=== PATIENT | female | born 1990 | race Caucasian/White ===

== ENCOUNTER 2018-02-05 20:24 | Inpatient (IN) ==
--- NOTE | 2018-02-05 21:17 | Emergency Department Note ---
Abdominal Pain HPI - General Chief Complaint: Abdominal Pain Stated Complaint: abd. pain Time Seen by Provider: 02/05/18 21:01 Mode of arrival: ambulatory - History of Present Illness HPI Narrative: This pleasant 27-year-old female comes to the emergency room with her fourth day of throbbing constant abdominal pain that may be worsened with cough , burping, laying on her side, certain positions, deep breathing. There is some radiation to the upper back. Also some that seems to be left posterior mid lower back area radiating through. She has not had a gallbladder surgery or problem in the past. She did have some similar mild pain during her . Ultrasound of her gallbladder demonstrated sludge during that time. She has no history of kidney disease or ulcer disease. She has tolerated the pain with Tylenol and ibuprofen occasionally being used. Patient was seen at urgent care today and had an elevated lipase and amylase and for this reason is sent to the emergency room. REVIEW OF SYSTEMS: Denies the following: Fevers, chills, sweats, chest pain, shortness of breath, nausea, vomiting, diarrhea, constipation, hematochezia, melena, dysuria, frequency, rashes, headaches, weakness, dizziness, anxiety, depression, back pain except as above. - Related Data Previous Rx's Medication Instructions Recorded sumatriptan 50 mg tablet 50 mg PO .COMPLEX #10 tab 12/12/17 Allergies Allergy/AdvReac Type Severity Reaction Status Date / Time Amoxicillin Allergy Mild Diarrhea,vomiting, Verified 02/05/18 17:46 rash Penicillins Allergy Unknown Diarrhrea, Verified 02/05/18 17:46 vomiting, rash Abdominal Pain PMH - Past Medical History Medical history: Denies: cancer, hypertension (Except for -induced), kidney stones, renal disease, seizures, thyroid disease Denies: peptic ulcer disease Surgical history ED: Reports: , tubal ligation Psychiatric history: Denies: anxiety, depression : 5 Para: 4 (C-S at least one.) Family history: Reports: other (Hypertension) - Social History Smoking status: Never smoker Alcohol use: Reports: Rarely (Maybe once a month) Drug use: Reports: none. Denies: marijuana Physical Exam Limitations: no limitations General appearance: alert, in no apparent distress, other (Able to smile and interact pleasantly, positively, appropriately without any consternation.) Head: atraumatic, normocephalic Eye: Present: normal appearance, PERRL, EOMI. Absent: scleral icterus, conjunctival injection Neck: Present: trachea midline. Absent: lymphadenopathy, thyromegaly Respiratory: Present: normal lung sounds bilaterally. Absent: respiratory distress, wheezes, stridor, accessory muscle use, prolonged expiratory phase Cardiovascular: Present: regular rate, normal rhythm. Absent: systolic murmur, diastolic murmur Abdominal: Present: soft, tenderness (Moderate tenderness in the right upper quadrant and epigastric; and left upper quadrant mildly. Lower abdominal palpation causes mild discomforts in the right upper quadrant area.), other (No periumbilical ecchymosis or flank ecchymosis.). Absent: distention, guarding, rebound, rigidity, organomegaly, mass Back: Absent: CVA tenderness (R), CVA tenderness (L), spinous process tenderness Neurological: Present: alert, oriented X3 Skin: Present: warm, dry Course Course Narrative: 9:00 PM By chemistry criteria is a significant pancreatitis of uncertain cause. Will do ultrasound testing initially. May be mild enough that can be managed conservatively. Labs done earlier today included WBC 7.8. Hemoglobin/hematocrit 11.2/33 HDL 34 Triglycerides 165 Amylase 190 (less than 100) Lipase 795 (less than 60) UA unremarkable with a specific gravity 1.009 Upon ER admission specific gravity however was 1.030. Vital Signs Temperature 98.1 F 02/05/18 20:25 Pulse Rate 117 H 02/05/18 20:25 Respiratory Rate 18 02/05/18 20:25 Blood Pressure 132/80 02/05/18 20:25 Pulse Oximetry (%) 99 02/05/18 20:25 Temperature 98.1 F 02/05/18 20:25 Pulse Rate 103 H 02/06/18 00:33 Respiratory Rate 18 02/05/18 20:25 Blood Pressure 123/70 02/06/18 00:31 Pulse Oximetry (%) 97 02/06/18 00:33 Abdominal Pain - MDM Narrative Medical decision making narrative: 11:20 PM Patient has tried oral fluids, clear, with marked increase in her pain. She looks rather uncomfortable. Will give some Zofran and hydromorphone an attempt to arrange inpatient hydration and pain control. - Lab Data Lab results reviewed: Yes I reviewed the patient's lab results. - Radiology Data Radiology results reviewed: Yes I reviewed the patient's radiology results. Disposition Pt seen by INNER TUBE CUTTER/PA only: No Clinical Impression: Fatty liver Pancreatitis Qualifiers: Chronicity: acute Pancreatitis type: unspecified pancreatitis type Acute pancreatitis complication: no infection or necrosis Qualified Code(s): K85.90 - Acute pancreatitis without necrosis or infection, unspecified Abdominal pain Qualifiers: Abdominal location: upper abdomen, unspecified Qualified Code(s): R10.10 - Upper abdominal pain, unspecified Summary: Patient initially appeared to be a mild case of pancreatitis with hopes of being able to tolerate some clear liquids and having pain control and be handled outpatient. Even a small amount of clear liquids caused quite a bit of significant increase in her pain. This necessitates her being inpatient to control pain and fluid status. 11:40 AM, Dr. Davis kindly accepts care of this patient. Disposition: Xfer As Inpt ([facility]) Condition: Fair Referrals: Akbar Garay MD [Primary Care Provider] -
[2018-02-05] MEDS ORDERED: HYDROmorphone 2 MG/ML VIAL IV PRN (23:23)
[2018-02-05] MEDS ORDERED: ONDANSETRON ODT 4 MG TABLET SL ONE (23:23)
[2018-02-06] MEDS ORDERED: 0.9 % SODIUM CHLORIDE 1,000 ML IV SCH (02:10)
[2018-02-06] MEDS ORDERED: HYDROmorphone 2 MG/ML VIAL IV PRN (02:10)
[2018-02-06] MEDS ORDERED: ACETAMINOPHEN 325 MG TABLET PO PRN (02:10)
[2018-02-06] MEDS: 0.9 % SODIUM CHLORIDE 10 ML SYRINGE IV SCH ×4 (02:43→21:12)
[2018-02-06 03:07] LABS: C-Reactive Protein 16.4 mg/dl (0.0-0.8)
[2018-02-06] MEDS: ACETAMINOPHEN 1,000 MG/100 ML BOTTLE IV PRN ×2 (03:29→21:13)
[2018-02-06] MEDS: 0.9 % SODIUM CHLORIDE 1,000 ML IV SCH ×4 (03:32→21:11)
[2018-02-06] MEDS: ONDANSETRON 4 MG/2 ML VIAL IV PRN (07:25)
[2018-02-06 07:27] LABS: Mean Cell Volume 82.7 fL (80.0-100.0); Mean Corpuscular Hemoglobin 28.1 pg (26.0-34.0); Platelet Count 281 K/mcL (140-440); RBC 3.47 M/mcL (4.00-5.20); Red Cell Distribution Width 13.8 % (11.5-14.5)
--- NOTE | 2018-02-06 07:31 | Ultrasound Report ---
CLINICAL INFORMATION: Right upper quadrant pain COMPARISON: None. FINDINGS: Liver is mildly enlarged and diffusely hyperechoic suggesting fatty change or other diffuse hepatocellular process. No focal hepatic lesion. Gallbladder and bile ducts are normal CBD is 3 mm. Pancreas is mildly hypoechoic suggestive, but certainly not diagnostic, of pancreatitis. Right kidney is normal - 12 x 5 cm. No free fluid IMPRESSION: 1. Mild hepatomegaly - please correlate with LFTs and history of exposure to hepatotoxins and viruses 2. Gallbladder and bile ducts are normal 3. Mildly hypoechoic pancreas which is suggestive, but certainly not diagnostic, of pancreatitis. Interpreted and Authenticated by: Jez Frausto 02/06/18
[2018-02-06 07:44] LABS: ALT/SGPT 17 U/l (0-40); Albumin 3.3 gm/dL (3.2-5.2); Albumin/Globulin Ratio 1.1 (1.0-2.3); Alkaline Phosphatase 56 U/L (39-117); Bilirubin,Direct < 0.2 mg/dL (0.0-0.3); Blood Urea Nitrogen 8 mg/dl (6-20); Gamma Glutamyl Transpeptidase 18 U/L (5-36); Uric Acid 3.9 mg/dL (2.5-8.0)
[2018-02-06 07:59] LABS: Lymphocytes % 37 % (15-49); Monocytes % (Manual) 6 % (1-12); Platelet Estimate NORMAL (NORMAL); RBC Morphology NORMAL (NORMAL); Segmented Neutrophils % 57 % (38-78)
--- NOTE | 2018-02-06 08:16 | Internal Med History&Physical ---
Medical - H&P: HPI Patient information: Note initiated : 02/06/18 at 8:14 am Service Date, if different from initiated Date: [] Patient: Shannan Marti 27 y/o F admitted on 02/06/18 for abd. pain. Chief Complaint: [] Chief complaint: abdominal pain nausea History of present illness: Ms. Marti is a 27 year old F [facility] onset of upper abdominal pain associated nausea. Symptoms started roughly around with gradual onset abdominal pain worsening with food intake. Pain is described as initially as an ache and later sharp stabbing 4 out 10-9 out of 10 radiating to the left side and back. Patient thought the symptoms were due to back spasm/GERD and was taking omeprazole along with NSAIDs without relief. After working with the symptoms for additional 4 days she comes to the urgent care. Initial workup was significant for elevated lipase at 700. She was subsequently transferred to ER and hospitalist service was consulted for admission light of acute pancreatitis At the time of evaluation patient is alert oriented and in moderate distress requiring IV opioids. She was able to provide history as above. She denies recent fever chills diarrhea and weight loss. She denies changes in medications. She denies excessive alcoholism except that she takes occasional wine. Denies IV drug use or history of gallstone or similar prior attacks. Review of systems 10 point review of system was performed and is negative except as discussed above Medical - H&P: PMH Medical history: History of migraine Pertinent family history: Grandfather WPW Father hypertension and myocardial infarction No history of pancreatitis Social history: Employed and works at [employer] to [employer] kids History smoking or drug use \Occasional wine use Smoking status: Never smoker Medical - H&P: Meds Home Medications Medication Instructions Recorded Confirmed Type sumatriptan 50 mg tablet 50 mg PO .COMPLEX #10 tab 12/12/17 02/06/18 Rx Allergies Allergy/AdvReac Type Severity Reaction Status Date / Time Amoxicillin Allergy Mild Diarrhea,vomiting, Verified 02/06/18 02:21 rash Penicillins Allergy Mild Diarrhrea, Verified 02/06/18 06:15 vomiting, rash Medical - H&P: Exam - Constitutional Vitals: Temp Pulse Resp BP Pulse Ox 97.9 F 100 H 16 132/79 99 02/06/18 07:34 02/06/18 07:34 02/06/18 07:34 02/06/18 07:34 02/06/18 07:34 General appearance: obese Exam: Alert oriented nonlabored breathing Eye movements ventricle Oral cavity dry No eardischarge Neck no lymphadenopathy nondistended abdomen S1-S2 regular rhythm diminished breath sounds bases Abdomen tender epigastric area without rebound or guarding Skin no suspicious lesion Lower extremity no cyanosis clubbing or lymphedema Psych alert cooperative Neuro nonfocal Medical - H&P: Reslt - Labs CBC & Chem 7: 02/07/18 04:20 02/07/18 04:20 Labs: Short CBC 02/06/18 Range/Units 06:42 WBC 6.1 (4.5-11.0) K/mcL Hgb 9.8 L (12.0-15.0) g/dL Hct 28.7 L (36.0-48.0) % Plt Count 281 (140-440) K/mcL BMP 02/06/18 06:42 Sodium 142 Potassium 4.0 Chloride 106 Carbon Dioxide 27 BUN 8 Creatinine 0.6 Glucose 97 Calcium 8.5 L Liver Function 02/06/18 Range/Units 06:42 Total Bilirubin 0.3 (0.0-1.0) mg/dL Direct Bilirubin < 0.2 (0.0-0.3) mg/dL GGT 18 (5-36) U/L AST 13 (0-37) U/l ALT 17 (0-40) U/l Alkaline Phosphatase 56 (39-117) U/L Albumin 3.3 (3.2-5.2) gm/dL Medical - H&P: A/P (1) Pancreatitis Current visit: Yes Status: Acute * Acute pancreatitis-low Edvin's and Vilas score on admit. CT scan abdomen to rule out pseudocyst/hemorrhage. Continue conservative management with steroids and bowel rest antiemetics and analgesics * Abdominal pain and new management on IV opioids * History of migraine. Continue as needed sumatriptan * Full code * Prophylaxis heparin Plan * Conservative management * Inpatient admission. Anticipate two midnight stay Medical - H&P: Qual - Stroke Symptom Onset Unknown: No - VTE Deep Vein Thrombosis/Pulmonary Embolism Present on Admission: No
[2018-02-06] MEDS ORDERED: IOPAMIDOL 100 ML BOTTLE IV ONE (08:30)
--- NOTE | 2018-02-06 09:02 | Cat Scan Report ---
CLINICAL INFORMATION: Abdominal pain - possible pancreatitis COMPARISON: None. TECHNIQUE: Following enteric contrast, 80 cc of Isovue-300 were injected intravenously, and 60 seconds later, 0.625 mm helical slices were obtained from the mid heart through the subtrochanteric regions. Following reconstruction, 2.5 mm sagittal, coronal and axial reformatted images were processed and reviewed at bone, lung and soft tissue windows. Five minutes later, 0.625 mm helical slices were obtained from the mid heart through the kidneys and viewed at soft tissue windows.The exam was performed using radiation dose optimization techniques including, but not limited to, automated exposure control, adjustment of the mA and/or kV according to patient size and use of iterative reconstruction technique. FINDINGS: Lung bases show subsegmental atelectasis, more prominent in the right lower lobe. There are no effusions. Visualized heart is grossly normal in size and configuration Images through the abdomen show mild hepatic enlargement withmild periportal edema suggesting inflammation or other diffuse hepatocellular process. There is no evidence of elevated right heart pressures - IVC is normal. Both kidneys, adrenal glands, spleen and aorta, including aortic branches, are normal in size, configuration and attenuation without focal lesion. The pancreas shows mild diffuse enlargement, decreased attenuation a small amount of fluid in the peripancreatic fat planes. There are few mildly enlarged mesenteric lymph nodes in the right abdomen which are almost certainly benign reactive lymph nodes. Images through the pelvis show the uterus is anteflexed and mildly enlarged - 10.4 x 4.4 cm. No focal uterine lesions. There are two interval cysts on the right ovary: 3.6 cm and cm respectively. A 2.4 cm simple is noted on the left ovary. Small amount of free fluid is noted in the pouch of Jamison. The colon, appendix, small bowel and stomach are grossly normal. Bone windows show no osseous abnormality IMPRESSION: 1. Mild simple pancreatitis 2. Mild hepatomegaly with periportal edema suggesting a diffuse hepatocellular process such as hepatitis. It also be seen with elevated right heart pressures but there is no CT support for this finding. Please correlate with LFTs and clinical history of exposure to hepatotoxins or viruses 3. Two simple cysts on the right ovary, 3.6 cm and 3.5 cm, respectively. 2.5 cm simple cyst left ovary. 4. Mild uterine enlargement. Most common cause is adenomyosis. Interpreted and Authenticated by: Jez Frausto 02/06/18
[2018-02-06] MEDS: DOCUSATE SODIUM 100 MG CAPSULE PO SCH ×2 (12:34→21:11)
[2018-02-07] MEDS: 0.9 % SODIUM CHLORIDE 1,000 ML IV SCH ×4 (02:08→19:36)
[2018-02-07] MEDS: 0.9 % SODIUM CHLORIDE 10 ML SYRINGE IV SCH ×3 (05:37→20:03)
[2018-02-07 06:23] LABS: Mean Cell Volume 81.8 fL (80.0-100.0); Mean Corpuscular HGB Conc 34.2 g/dL (31.0-36.0); Platelet Count 284 K/mcL (140-440); RBC 3.46 M/mcL (4.00-5.20); Red Cell Distribution Width 12.9 % (11.5-14.5)
[2018-02-07 06:54] LABS: ALT/SGPT 18 U/l (0-40); Albumin 3.2 gm/dL (3.2-5.2); Alkaline Phosphatase 64 U/L (39-117); Bilirubin,Direct < 0.2 mg/dL (0.0-0.3); Blood Urea Nitrogen 7 mg/dl (6-20); Gamma Glutamyl Transpeptidase 24 U/L (5-36); Uric Acid 4.5 mg/dL (2.5-8.0)
[2018-02-07] MEDS: PANTOPRAZOLE 40 MG VIAL IV SCH ×2 (09:30→17:38)
[2018-02-07] MEDS: DOCUSATE SODIUM 100 MG CAPSULE PO SCH ×2 (10:31→20:02)
[2018-02-07 11:08] LABS: Eosinophils % (Manual) 3 % (0-7); Lymphocytes % 35 % (15-49); Monocytes % (Manual) 11 % (1-12); Platelet Estimate NORMAL (NORMAL); RBC Morphology NORMAL (NORMAL); Segmented Neutrophils % 51 % (38-78)
--- NOTE | 2018-02-07 13:25 | Internal Med Progress Note ---
Medical - PN: Subj Patient information: Note initiated : 02/07/18 at 1:23 pm Service Date, if different from initiated Date: [] Patient: Shannan Marti a 27 y/o F admitted on 02/06/18 for Abd Pain/ Pancreatitis. Chief Complaint: [] Interval history: Ms. Marti is a 27 year [facility] F [facility] onset of upper abdominal pain associated nausea. Symptoms started roughly around with gradual onset abdominal pain worsening with food intake. Pain is described as initially as an ache and later sharp stabbing 4 out 10-9 out of 10 radiating to the left side and back. Patient thought the symptoms were due to back spasm/GERD and was taking omeprazole along with NSAIDs without relief. After working with the symptoms for additional 4 days she comes to the urgent care. Initial workup was significant for elevated lipase at 700. She was subsequently transferred to ER and hospitalist service was consulted for admission light of acute pancreatitis /25-patient doing well. Abdominal ultrasound/CT unremarkable except for simple pancreatitis. Triglyceride 100. Multiple ovarian/renal cyst noted. CRP downtrending. Clinically improving. Advancing diet to full liquids. No fever chills or worsening abdominal pain. Family at bedside. Family requesting HIDA scan. Explained there is no evidence of cholecystitis either clinically or on imaging mandating HIDA scan. There is no ductal dilation on imaging either. Continue existing conservative management. Possible discharge in 24-48 hours if able to tolerate a low-fat diet. - Constitutional Vitals: Vital Signs Temp Pulse Resp BP Pulse Ox 97.8 F 96 H 20 129/82 97 02/07/18 11:33 02/07/18 04:00 02/07/18 11:33 02/07/18 11:33 02/07/18 11:33 Period Temp Pulse Resp BP Sys/Neely Pulse Ox Last 24 Hr 97.8 F-98.4 F 96-104 16-20 103-129/70-84 93-97 Intake and Output 02/06/18 02/07/18 02/07/18 21:59 05:59 13:59 Intake Total 1073 / 1073 1090 / 1090 Output Total 550 / 550 400 / 400 Balance 523 / 523 690 / 690 Weight 206 lb 8 oz 206 lb 8 oz Patient Weight 02/08/18 05:59 Weight 206 lb 8 oz Intake & Output: Intake & Output 02/06/18 02/07/18 02/07/18 21:59 05:59 13:59 Intake Total 1073 / 1073 1090 / 1090 Output Total 550 / 550 400 / 400 Balance 523 / 523 690 / 690 Weight 206 lb 8 oz 206 lb 8 oz Intake: IV 983 / 983 1000 / 1000 Sodium Chloride 0.9% 1,000 ml @ 983 / 983 1000 / 1000 125 mls/hr IV .Q8H [facility] Rx#: [id number] Oral 90 / 90 90 / 90 Output: Void Amount 550 / 550 400 / 400 General appearance: no acute distress Exam: Alert oriented nonlabored breathing Nondistended abdomen No anxiety Medical - PN: Obj Da - Labs CBC & Chem 7: 02/07/18 04:20 02/07/18 04:20 Labs: Abnormal Lab Results 02/07/18 02/07/18 02/07/18 04:30 04:20 04:20 RBC 3.46 L Hgb 9.7 L Hct 28.3 L ESR Creatinine 0.5 L Calcium 8.3 L C-Reactive Protein 11.8 H 02/06/18 02/06/18 02/06/18 06:42 06:42 02:15 RBC 3.47 L Hgb 9.8 L Hct 28.7 L ESR Creatinine Calcium 8.5 L C-Reactive Protein 16.4 H 02/06/18 02:15 RBC Hgb Hct ESR 67 H Creatinine Calcium C-Reactive Protein Meds: Medications Acetaminophen (Tylenol) 650 mg PO Q4-6HP PRN PRN Reason: PAIN/FEVER > 101 Docusate Sodium (Colace) 100 mg PO BID [facility] Last Admin: 02/07/18 10:31 Dose: Not Given Hydromorphone HCl (Dilaudid) 0 mg IV Q4HP PRN PRN Reason: PAIN LEVEL > 6 Last Admin: 02/06/18 07:25 Dose: 0.5 mg Sodium Chloride (Sodium Chloride 0.9%) 1,000 mls @ 125 mls/hr IV .Q8H [facility] Last Admin: 02/07/18 05:37 Dose: 125 mls/hr Acetaminophen (Ofirmev) 1,000 mg in 100 mls @ 200 mls/hr IV Q6HP PRN PRN Reason: PAIN/FEVER > 101 Last Admin: 02/06/18 21:13 Dose: 200 mls/hr Ondansetron HCl (Zofran) 4 mg IV Q4-6HP PRN PRN Reason: Nausea And Vomiting Last Admin: 02/06/18 07:25 Dose: 4 mg Pantoprazole Sodium (Protonix) 40 mg IV BIDAC [facility] Last Admin: 02/07/18 09:30 Dose: 40 mg Sodium Chloride (Saline Flush) 10 ml IV Q8 [facility] Last Admin: 02/07/18 05:37 Dose: Not Given Medical - PN: A/P - Time Spent With Patient Total time spent is greater than 50% in coordination of care (as documented) at patient's floor/unit and/or counseling patient: 15 - 24 minutes (1) Pancreatitis Status: Acute Assessment and plan: * Acute pancreatitis-low Edvin's and Liberty score on admit. CT simple pancreatitis without ductal occlusion or stenosis. Continue conservative management . Advanced to full liquid diet * Abdominal pain - clinical improvement noted on IV opioids * History of migraine. Continue as needed sumatriptan * Full code * Prophylaxis heparin Plan * Conservative management * Advance diet to full liquids Current Visit: Yes Medical - PN: Qual - Stroke Symptom Onset Unknown: No - VTE Deep Vein Thrombosis/Pulmonary Embolism Present on Admission: No
[2018-02-07] MEDS ORDERED: 0.9 % SODIUM CHLORIDE 1,000 ML IV SCH (19:50)
[2018-02-08 04:58] LABS: Mean Cell Volume 81.8 fL (80.0-100.0); Mean Corpuscular HGB Conc 33.9 g/dL (31.0-36.0); Mean Corpuscular Hemoglobin 27.8 pg (26.0-34.0); Platelet Count 310 K/mcL (140-440); RBC 3.47 M/mcL (4.00-5.20)
[2018-02-08 05:21] LABS: ALT/SGPT 17 U/l (0-40); Albumin 3.1 gm/dL (3.2-5.2); Alkaline Phosphatase 63 U/L (39-117); Bilirubin,Direct < 0.2 mg/dL (0.0-0.3); Blood Urea Nitrogen 5 mg/dl (6-20); Gamma Glutamyl Transpeptidase 23 U/L (5-36); Uric Acid 4.6 mg/dL (2.5-8.0)
[2018-02-08] MEDS: 0.9 % SODIUM CHLORIDE 10 ML SYRINGE IV SCH (06:15)
[2018-02-08] MEDS: PANTOPRAZOLE 40 MG VIAL IV SCH (07:23)
[2018-02-08] MEDS: DOCUSATE SODIUM 100 MG CAPSULE PO SCH (07:25)
[2018-02-08 08:41] LABS: Eosinophils % (Manual) 3 % (0-7); Lymphocytes % 37 % (15-49); Monocytes % (Manual) 3 % (1-12); Platelet Estimate NORMAL (NORMAL); RBC Morphology NORMAL (NORMAL); Segmented Neutrophils % 57 % (38-78)
[2018-02-08] MEDS: ONDANSETRON 4 MG/2 ML VIAL IV PRN (10:01)
--- NOTE | 2018-02-08 12:57 | Discharge Summary ---
Medical - DS: Prov Patient information: Note initiated : 02/08/18 at 12:38 pm Service Date, if different from initiated Date: [] Patient: Shannan Marti 27 y/o F admitted on 02/06/18 for Abd Pain/ Pancreatitis. Chief Complaint: [] Date of admission: 02/06/18 02:07 Discharge date: 02/08/18 Primary care physician: Akbar Garay Admitting clinician: Abdirahman Pratt Consults: 02/05/18 23:24 Consult to Physician [CONS] Stat Comment: Consulting Provider: Abdirahman Pratt Reason For Exam: Physician to Consult Discharging clinician: Nick Ceja Medical - DS: Meds - Discharge Medications Active and Home Medications: Home Medications sumatriptan 50 mg tablet 50 mg PO .COMPLEX #10 tab 12/12/17 [Rx Confirmed Last Taken 12/29/17 18:00] Medical - DS: Hosp Hospital course: Ms. Marti is a 27 year old F mother of 4 comes [facility] ER visit four-day onset of upper abdominal pain associated nausea. Symptoms started roughly around with gradual onset abdominal pain worsening with food intake. Pain is described as initially as an ache and later sharp stabbing 4 out 10-9 out of 10 radiating to the left side and back. Patient thought the symptoms were due to back spasm/GERD and was taking omeprazole along with NSAIDs without relief. After working with the symptoms for additional 4 days she comes to the urgent care. Initial workup was significant for elevated lipase at 700. She was subsequently transferred to ER and hospitalist service was consulted for admission light of acute pancreatitis Acute pancreatitis Abdominal ultrasound/CT unremarkable except for simple pancreatitis. Triglyceride 100. Multiple ovarian/renal cyst noted. CRP downtrending. Clinically improving. Advancing diet to full liquids. No fever chills or worsening abdominal pain. Family at bedside. Family requesting HIDA scan. Explained there is no evidence of cholecystitis either clinically or on imaging mandating HIDA scan. There is no ductal dilation on imaging either. Continue existing conservative management. The etiology of pancreatitis as well as hepatomegaly uncertain. Pt has normal LFT, will refer patient to GI as outpatient for further evaluation. Abdominal USG IMPRESSION: 1. Mild hepatomegaly - please correlate with LFTs and history of exposure to hepatotoxins and viruses 2. Gallbladder and bile ducts are normal 3. Mildly hypoechoic pancreas which is suggestive, but certainly not diagnostic, of pancreatitis. Abdominal CT IMPRESSION: 1. Mild simple pancreatitis 2. Mild hepatomegaly with periportal edema suggesting a diffuse hepatocellular process such as hepatitis. It also be seen with elevated right heart pressures but there is no CT support for this finding. Please correlate with LFTs and clinical history of exposure to hepatotoxins or viruses 3. Two simple cysts on the right ovary, 3.6 cm and 3.5 cm, respectively. 2.5 cm simple cyst left ovary. 4. Mild uterine enlargement. Most common cause is adenomyosis. Discharge diagnosis: Acute pancreatitis - Time Spent with Patient Total time spent providing and/or coordinating discharge services: Less than 30 minutes Medical - DS: Exam - Constitutional Vitals: Vital Signs Temp Pulse Resp BP Pulse Ox 02/08/18 12:00 97.8 F 83 12 126/75 97 02/08/18 07:37 97.8 F 85 12 128/79 97 02/08/18 04:00 98.2 F 73 12 112/73 02/08/18 00:55 98.6 F 89 12 114/74 96 02/07/18 19:27 98.6 F 94 H 16 137/87 97 02/07/18 16:00 97.8 F 16 126/77 99 Intake and Output 02/07/18 02/08/18 02/08/18 21:59 05:59 13:59 Intake Total 2029 / 2029 Output Total 1550 / 1550 600 / 600 1000 / 1000 Balance 480 / 480 -600 / -600 -1000 / -1000 Intake: IV 550 / 550 Sodium Chloride 0.9% 1,000 ml @ 550 / 550 125 mls/hr IV .Q8H [facility] Rx#: [id number] Oral 1480 / 1480 Output: Void Amount 1550 / 1550 600 / 600 1000 / 1000 Other: Meal Dinner Breakfast Percent of Meal Consumed 100% 90% Feeding Ability Independent Independent Stool Consistency Loose # Bowel Movements 1 Weight 212 lb Additional comments: Constitutional; Afebrile, cooperative, alert, not in distress. Eyes- No icterus, , No periorbital swelling Ears- Ext ear normal, hearing normal to conversation. Neck- Midline trachea, supple Respiratory system: Air Entry equal on both sides, No crackles or wheezing, no rhonchi. CVS- Rate rhythm regular, S1,S2 heard, no gallop, no rub. 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 Medical - DS: Data Labs on day of discharge: Labs from last 24 hours 02/08/18 02/08/18 04:05 04:05 WBC 5.1 RBC 3.47 L Hgb 9.6 L Hct 28.4 L MCV 81.8 MCH 27.8 MCHC 33.9 RDW 13.0 Plt Count 310 MPV 8.1 Total Counted 100 Seg Neutrophils % 57 Band Neutrophils % Not Reportable Lymphocytes % 37 Monocytes % (Manual) 3 Eosinophils % (Manual) 3 Platelet Estimate Normal RBC Morphology Normal Sodium 140 Potassium 3.8 Chloride 106 Carbon Dioxide 25 Anion Gap 9.0 BUN 5 L Creatinine 0.6 GFR Calculation 125 Glucose 95 Uric Acid 4.6 Calcium 8.5 L Phosphorus 3.1 Magnesium 1.9 Total Bilirubin 0.2 Direct Bilirubin < 0.2 GGT 23 AST 11 ALT 17 Alkaline Phosphatase 63 Lactate Dehydrogenase 123 Total Protein 6.1 Albumin 3.1 L Globulin 3.0 Albumin/Globulin Ratio 1.0 Triglycerides 81 Medical - DS: A/P - Patient/Caregiver Discharge Instructions Activity: increase activity as tolerated Diet: Regular Diet Additional Instructions: Follow up with PCP in 1-2 weeks Follow up with Anitha MACDONALD in 1-2 weeks for evaluation of liver abnormalities on CT And UG as well as to evaluate why you had pancreatitis. Go to the ER if worsening symptoms, fever, abdominal pain or any other concerning symptom. - Follow up Plan Follow up with: Akbar Garay MD [Primary Care Provider] - 02/20/18 2:00 pm Anitha Mora ARNP [Nurse Practitioner] - Disposition: Home, Self-Care Prognosis: Fair Rehab Potential: Fair I certify that the patient requires SNF services: No Overall status at discharge: patient is back to baseline Medical - DS: Qual - VTE Deep Vein Thrombosis/Pulmonary Embolism Present on Admission: No
== END 2018-02-08 14:22 | disposition home or self-care (01) | DRG 440 ==
LOC: ED 20:24 → MEDSUR 02-06 02:07
PROVIDERS: ADMIT Internal Medicine; ATTEND Internal Medicine